=== PATIENT | male | born 1985 | race Caucasian/White ===

== ENCOUNTER 2016-10-24 21:32 | Emergency (ER) | payer OTHER ==
[~2016-10-24] VITALS: Ht 182.9 cm; Wt 78.1 kg
[2016-10-24 21:40] VITALS: Ht 182.9 cm; Wt 78.1 kg
[2016-10-24 23:16] LABS: URINE BLOOD (Dip) POC 3+ (NEGATIVE)
--- NOTE | 2016-10-24 23:26 | ERD ---
ER Documentation Chief Complaint Date/Time DATE: 10/24/16 TIME: 23:24 Chief Complaint HEMATURIA STARTED TONIGHT. HPI 30-year-old male presents with emergency department for blood in the urine that started tonight. Patient was urinating, the band of his underwear accidentally hit the shaft of his penis, felt an urge to be an for stated, started to be paying blood afterwards. Patient denies any pain. Patient denies any flank pain or abdominal pain. Patient denies any nausea or vomiting. The patient felt dizzy and nauseous after seeing the blood. Patient denies any dizziness at this time. Patient had another urinary output, it was clear, but suddenly felt the pain again in urge to force to be and had a blood in the urine again. Patient denies any dysuria. No new sexual partners. ROS All systems reviewed and are negative except as per history of present illness. Medications Home Meds Reported Medications [none] Unknown Strength No Conflict Check 10/24/16 Allergies Allergies: Coded Allergies: No Known Allergy (Unverified , 10/24/16) PMhx/Soc Medical and Surgical Hx: pt denies Medical Hx, pt denies Surgical Hx History of Surgery: No (DENIES MEDICAL AND SURGICAL HX.) Anesthesia Reaction: No Hx Neurological Disorder: No Hx Respiratory Disorders: No Hx Cardiac Disorders: No Hx Psychiatric Problems: No Hx Miscellaneous Medical Probl: No Hx Alcohol Use: No Hx Substance Use: No Hx Tobacco Use: No Smoking Status: Never smoker FmHx Family History: No coronary disease, No diabetes, No other Physical Exam Vitals Vital Signs Date Time Temp Pulse Resp B/P Pulse Ox O2 Delivery O2 Flow Rate FiO2 10/24/16 21:40 97.0 57 20 142/83 99 Physical Exam GENERAL: The patient is well developed and appropriate for usual state of health, in no apparent distress. CHEST: Clear to auscultation bilaterally. There are no rales, wheezes or rhonchi. HEART: Regular rate and rhythm. No murmurs, clicks, rubs or gallops. No S3 or S4. ABDOMEN: Soft, nontender and nondistended. Good bowel sounds. No rebound or guarding. No gross peritonitis. No gross organomegaly or masses. No Augustin sign or McBurney point tenderness. BACK: No midline or flank tenderness. EXTREMITIES: Equal pulses bilaterally. There is no peripheral clubbing, cyanosis or edema. No focal swelling or erythema. Full range of motion. Grossly neurovascularly intact. NEURO: Alert and oriented. Cranial nerves 2-12 intact. Motor strength in all 4 extremities with 5/5 strength. Sensation grossly intact. Normal speech and gait. SKIN: There is no apparent rash or petechia. The skin is warm and dry. HEMATOLOGIC AND LYMPHATIC: There is no evidence of excessive bruising or lymphedema. No gross cervical, axillary, or inguinal lymphadenopathy. : No penile discharge noted, no scrotal redness or swelling or tenderness noted. No purulent discharge from the penis. Noted clotted blood coming out from the penile area. Result Diagram: 10/24/16 2340 10/24/16 2340 Results 24 hrs Laboratory Tests Test 10/24/16 23:00 10/24/16 23:18 10/24/16 23:40 Urine Color RED Urine Clarity SLIGHTLY CLOUDY Urine pH 6.0 Urine Specific [place] 1.020 Urine Ketones NEGATIVE Urine Nitrite NEGATIVE Urine Bilirubin NEGATIVE Urine Urobilinogen 0.2 E.U./dL Urine Leukocyte Esterase NEGATIVE Urine Microscopic RBC >200/HPF Urine Microscopic WBC 0-2/HPF Urine Squamous Epithelial Cells RARE Urine Bacteria FEW Urine Hemoglobin 3+ Urine Glucose NEGATIVE% Urine Total Protein 2+ Bedside Urine pH (LAB) 5.5 Bedside Urine Protein (LAB) 3+ Bedside Urine Glucose (UA) Negative Bedside Urine Ketones (LAB) Trace Bedside Urine Blood 3+ Bedside Urine Nitrite (LAB) Negative Bedside Urine Leukocyte Esterase (L 3+ White Blood Count 7.610^3/ul Red Blood Count 4.8810^6/ul Hemoglobin 14.2g/dl Hematocrit 42.6% Mean Corpuscular Volume 87.3fl Mean Corpuscular Hemoglobin 29.1pg Mean Corpuscular Hemoglobin Concent 33.3g/dl Red Cell Distribution Width 12.8% Platelet Count 68871^3/UL Mean Platelet Volume 10.3fl Neutrophils % 53.1% Lymphocytes % 35.7% Monocytes % 7.4% Eosinophils % 2.4% Basophils % 0.7% Nucleated Red Blood Cells % 0.0/100WBC Neutrophils # 4.010^3/ul Lymphocytes # 2.710^3/ul Monocytes # 0.610^3/ul Eosinophils # 0.210^3/ul Basophils # 0.110^3/ul Nucleated Red Blood Cells # 0.010^3/ul Prothrombin Time 12.5Sec Prothrombin Time Ratio 1.0 INR International Normalized Ratio 0.93 Activated Partial Thromboplast Time 25.1Sec Thrombin Time 15.7SEC Sodium Level 137mmol/L Potassium Level 3.8mmol/L Chloride Level 104mmol/L Carbon Dioxide Level 26mmol/L Anion Gap 11 Blood Urea Nitrogen 22mg/dl Creatinine 0.94mg/dl Glucose Level 104mg/dl Calcium Level 9.9mg/dl Total Bilirubin 0.0mg/dl Direct Bilirubin 0.00mg/dl Indirect Bilirubin 0.0mg/dl Aspartate Amino Transf (AST/SGOT) 57IU/L Alanine Aminotransferase (ALT/SGPT) 65IU/L Alkaline Phosphatase 37IU/L Total Protein 8.0g/dl Albumin 4.5g/dl Globulin 3.50g/dl Albumin/Globulin Ratio 1.28 Current Medications Medications (Trade) Dose Ordered Sig/Joy Route PRN Reason Start Time Stop Time Status Last Admin Dose Admin Lidocaine (Xylocaine (Viscous)) 15 ml ONCE ONCE PO 10/25/16 00:30 10/25/16 00:31 [place] Urologist paged at 11:30 PM. Consulted urology specialist, Dr. Orantes, recommend insertion of Garvin catheter to has stop the bleeding and to prevent urinary retention, patient is advised to return tomorrow for removal of the catheter and further reevaluation. At this time, patient is not actively bleeding. Patient is able to urinate. Patient consented for Garvin catheter placement. Garvin catheter was inserted without any difficulty, good urinary output 1000 mL, A big clot was noted in the output, the urine output was nonbloody, clear irving urine. Patient tolerated procedure well. Procedures/MDM Medical decision making: Patient's symptoms most active consistent with urethral injury. The bleeding has stopped at this time, no active bleeding at this time. A urinary Garvin catheter was inserted to help stop bleeding morning to prevent urinary retention, patient is advised to return in 12 hours for possible removal of the catheter and reevaluation. Patient was advised to return sooner bleeding occurs again. Patient will be given ciprofloxacin to prevent infection, patient was advised to return to emergency department for any worsening symptoms. No coagulopathies is noted. Discussed this case with attending physician, Dr. Ramsay which agrees with the plan, also consulted urology specialist, patient is advised to return in 12 hours for possible removal of the urinary catheter. Departure Diagnosis: Primary Impression: Urethral injury Encounter type: initial encounter Qualified Code: S37.30XA - Urethral injury , initial encounter Condition: Stable Patient Instructions: Garvin Catheter, Care Additional Instructions: return in 12 hrs, for removal of catheter and further evaluation JOVANNA ANDRES NP October 24, 2016 23:26
[2016-10-24 23:43] LABS: ADD UMIC YES; URINE BILIRUBIN (Dip) NEGATIVE (NEGATIVE); URINE GLUCOSE (Dip) NEGATIVE (NEGATIVE); URINE KETONES (Dip) NEGATIVE (NEGATIVE); URINE LEUKOCYTE ESTERASE (Dip) NEGATIVE (NEGATIVE); URINE NITRITE (Dip) NEGATIVE (NEGATIVE); URINE TOTAL PROTEIN (Dip) 2+ (NEGATIVE); URINE UROBILINOGEN (Dip) 0.2 E.U./dL (0.1-1.0)
[2016-10-24 23:45] LABS: URINE BLOOD (Dip) 3+ (NEGATIVE); URINE COLOR RED (YELLOW)
[2016-10-24 23:48] LABS: URINE RBCS >200 /HPF (0)
[2016-10-24 23:49] LABS: BACTERIA,URINE FEW; SQUAMOUS EPITHELIAL CELL,UR RARE
[2016-10-24 23:52] LABS: ADD SCAN DIFF NO
[2016-10-24 23:55] LABS: BASOPHIL # 0.1 10^3/ul (0.0-0.1); BASOPHILS % 0.7 % (0.0-2.0); EOSINOPHILS # 0.2 10^3/ul (0.0-0.5); EOSINOPHILS % 2.4 % (0.0-7.0); HEMATOCRIT 42.6 % (42.0-52.0); HEMOGLOBIN 14.2 g/dl (14.0-18.0); LYMPHOCYTES # 2.7 10^3/ul (0.8-2.9); LYMPHOCYTES % 35.7 % (15.0-51.0); MEAN CORPUSCULAR HEMOGLOBIN 29.1 pg (29.0-33.0); MEAN CORPUSCULAR HGB CONC 33.3 g/dl (32.0-37.0); MEAN CORPUSCULAR VOLUME 87.3 fl (82.0-101.0); MEAN PLATELET VOLUME 10.3 fl (7.4-10.4); MONOCYTE # 0.6 10^3/ul (0.3-0.9); MONOCYTES % 7.4 % (0.0-11.0); NEUTROPHILS % 53.1 % (39.0-77.0); PLATELET COUNT 266 10^3/UL (140-415); RED BLOOD COUNT 4.88 10^6/ul (4.70-6.10); RED CELL DISTRIBUTION WIDTH 12.8 % (11.5-14.5); WHITE BLOOD COUNT 7.6 10^3/ul (4.8-10.8)
[2016-10-25 00:11] LABS: INR 0.93; PROTIME 12.5 Sec (12.2-14.2)
[2016-10-25 00:12] LABS: PARTIAL THROMBOPLASTIN TIME 25.1 Sec (25.0-35.0); THROMBIN TIME 15.7 SEC (13.8-19.1)
[2016-10-25 00:16] LABS: ALBUMIN 4.5 g/dl (3.3-4.9); ALBUMIN/GLOBULIN RATIO 1.28; CALCIUM 9.9 mg/dl (8.4-10.2); CREATININE 0.94 mg/dl (0.61-1.24); POTASSIUM 3.8 mmol/L (3.5-5.1)
[2016-10-25] MEDS ORDERED: LIDOCAINE 2% VISC 15 ML CUP PO ONE (00:30)
[2016-10-25] MEDS ORDERED: CIPR500T4 PO (00:47)
[2016-10-25 01:03] VITALS: BP 128/88; PULSE 77; RESP 20; TEMP 97.9
[2016-10-25] MEDS ORDERED: CEPH-443 PO ×2 (15:43→15:44)
== END 2016-10-25 01:04 | disposition home or self-care (01) ==
LOC: FTE 21:32
DX: S37.30XA Unspecified injury of urethra, initial encounter (principal); W22.8XXA Striking against or struck by other objects, initial encounter; Y92.9 Unspecified place or not applicable
CPT/HCPCS: 36415; 80053; 81001; 81003; 85025; 85049; 85610; 85670; 85730; 87086; 87591

== ENCOUNTER 2016-10-25 13:04 | Emergency (ER) | payer OTHER ==
[~2016-10-25] VITALS: Ht 182.9 cm; Wt 80.0 kg
[~2016-10-25 13:04] MED LIST: CIPR500T4 PO
[2016-10-25 13:32] VITALS: Ht 182.9 cm; Wt 80.0 kg
[2016-10-25 15:24] LABS: URINE BLOOD (Dip) POC 3+ (NEGATIVE)
[2016-10-25] MEDS ORDERED: CEPH-443 PO ×2 (15:43→15:44)
--- NOTE | 2016-10-25 17:48 | ERD ---
ER Documentation Chief Complaint Date/Time DATE: 10/25/16 TIME: 17:45 Chief Complaint need urinary cath to be removed HPI Patient is a 30-year-old male who presents to the ED with catheter removal. He states that she came to the ER yesterday after having blood discharge from his penis. He states that he was going to the bathroom yesterday evening and the strap of his underwear and his jeans somehow caught on his penis and caused him to not urinate. He states that once he pulled his underwear off of his penis he had bloody urine. He states that he had a catheter placed in last night. He does not take his antibiotics that were given to him. He denies any pain today and is here for removal of his catheter. He has not followed up with urologist. He has no other complaints. ROS All systems reviewed and are negative except as per history of present illness. Medications Home Meds Active Scripts Cephalexin* (Keflex*) 500 Mg Capsule, 500 MG PO BID for 5 Days, CAP Prov:FILIBERTO ESTEBAN PA-C 10/25/16 Ciprofloxacin Hcl* (Ciprofloxacin Hcl*) 500 Mg Tablet, 500 MG PO BID for 7 Days , TAB Prov:JOVANNA ANDRES NP 10/25/16 Reported Medications [none] Unknown Strength No Conflict Check 10/24/16 Allergies Allergies: Coded Allergies: No Known Allergy (Unverified , 10/24/16) PMhx/Soc History of Surgery: No (DENIES MEDICAL AND SURGICAL HX.) Anesthesia Reaction: No Hx Neurological Disorder: No Hx Respiratory Disorders: No Hx Cardiac Disorders: No Hx Psychiatric Problems: No Hx Miscellaneous Medical Probl: No Hx Alcohol Use: No Hx Substance Use: No Hx Tobacco Use: No Smoking Status: Never smoker FmHx Family History: No coronary disease, No diabetes, No other Physical Exam Vitals Vital Signs Date Time Temp Pulse Resp B/P Pulse Ox O2 Delivery O2 Flow Rate FiO2 10/25/16 13:32 97.8 61 18 134/78 98 Physical Exam GENERAL: Well-developed, well-nourished male. Appears in no acute distress. HEAD: Normocephalic, atraumatic. EYES: Pupils are equally reactive bilaterally. EOMs grossly intact. No conjunctival erythema. ENT: Moist mucous membranes. No uvula deviation. No kissing tonsils. No exudates. NECK: Supple. No lymphadenopathy or thyromegaly. No meningismus. negative kernig. negative brudinski. LUNG: Clear to auscultation bilaterally. No rhonchi, wheezing, rales or coarse breath sounds. HEART: Regular rate and rhythm. No murmurs, rubs or gallops. Urine bag is attached to patient's leg is clear and yellow with no blood. Extremities: Equal pulses bilaterally. No peripheral clubbing, cyanosis or edema. No unilateral leg swelling. NEUROLOGIC: Alert and oriented. Moving all four extremities. 5/5 strength in all extremities. Normal speech. Steady gait. SKIN: Normal color. Warm and dry. No rashes or lesions. Capillary refill < 2 seconds Results 24 hrs Laboratory Tests Test 10/25/16 15:26 Bedside Urine pH (LAB) 6.0 Bedside Urine Protein (LAB) Negative Bedside Urine Glucose (UA) Negative Bedside Urine Ketones (LAB) Negative Bedside Urine Blood 3+ Bedside Urine Nitrite (LAB) Negative Bedside Urine Leukocyte Esterase (L 1+ Procedures/MDM ER COURSE: I kept the patient and/or family informed of laboratory and diagnostic imaging results throughout the emergency room course. PROCEDURES Catheter was removed. Urine dip showed 1+ leukocytes. With no nitrites. Patient was able to urinate without pain or bleeding. MEDICAL DECISION MAKING: This is a 30-year-old male who presents with catheter removal. Vital signs were reviewed. Patient is afebrile. Patient is not hypoxic. Patient is nontoxic or ill-appearing. I consulted with Dr. Bernal regarding this patient. Catheter was removed without difficulty. I advised patient to follow-up with urologist in 1-2 days. Patient is hemodynamically stable. I have low suspicion for testicular torsion, cellulitis, urinary retention. DISCHARGE: At this time, patient is stable for discharge and outpatient management with no new complaints during the ER course. Patient was sent home with Keflex and to follow-up with urologist. Name of Dr. Cervantes was given to patient.. Patient will be discharged home with instructions to recheck for new or worsening symptoms such as fever, nausea, weakness, LOC and to follow up with primary care in the next 1-2 days. Patient was advised to return to the ER for any new or worsening symptoms. Plan was discussed and patient and/or family understands and agrees. Home instructions were given. Departure Diagnosis: Primary Impression: Cystitis Additional Impression: Urinary catheter insertion/adjustment/removal Condition: Stable Patient Instructions: Garvin Catheter Removal, Cystitis Referrals: NO PRIMARY,CARE PHYSICIAN PEÑA CERVANTES MD Additional Instructions: Call your primary care doctor TOMORROW for an appointment during the next 1-2 days.See the doctor sooner or return here if your condition worsens before your appointment time. FILIBERTO ESTEBAN PA-C October 25, 2016 17:48
== END 2016-10-25 16:08 | disposition home or self-care (01) ==
LOC: FTE 13:04
DX: N30.90 Cystitis, unspecified without hematuria (principal)
CPT/HCPCS: 81003